=== PATIENT | male | born 1945 | race Caucasian/White ===

== ENCOUNTER → 2023-06-22 07:13 | Outpatient (REF) | payer OTHER, SELFPAY | LOC: DHCBS MAIN 07:13 | PROVIDERS: ATTENDING PHYSICIAN Internal Medicine Cardiovascular Disease; FAMILY PHYSICIAN Internal Medicine | DX: R94.31 Abnormal electrocardiogram [ECG] [EKG] (principal); I45.2 Bifascicular block | CPT/HCPCS: 93306 ==

== ENCOUNTER 2023-09-17 10:02 | Outpatient (RCR) | payer OTHER, SELFPAY | END 2023-09-17 23:59 | disposition home or self-care (01) | LOC: RPT 10:02 | PROVIDERS: ATTENDING PHYSICIAN Specialist; FAMILY PHYSICIAN Internal Medicine | DX: Z47.1 Aftercare following joint replacement surgery (principal); Z96.642 Presence of left artificial hip joint; Z73.6 Limitation of activities due to disability; R26.2 Difficulty in walking, not elsewhere classified | CPT/HCPCS: 97110; 97112; 97530 ==

== ENCOUNTER 2023-09-29 09:59 | Outpatient (RCR) | payer OTHER, SELFPAY | END 2023-09-29 12:52 | disposition home or self-care (01) | LOC: RPT 09:59 | PROVIDERS: ATTENDING PHYSICIAN Specialist; FAMILY PHYSICIAN Internal Medicine | DX: Z47.1 Aftercare following joint replacement surgery (principal); R26.2 Difficulty in walking, not elsewhere classified; Z96.642 Presence of left artificial hip joint | CPT/HCPCS: 97110; 97530 ==